=== PATIENT | female | born 1965 | race Caucasian/White ===

== ENCOUNTER 2016-05-04 08:16 | Outpatient (CLI) | payer OTHER | END 2016-05-04 08:17 | disposition home or self-care (01) | DX: Z12.31 Encounter for screening mammogram for malignant neoplasm of breast (principal) ==

== ENCOUNTER 2016-11-08 11:43 | Outpatient (CLI) | payer OTHER ==
[2016-11-08 19:22] LABS: BASOPHILS # (AUTO) 0.1 10^3/uL (0.0-0.1); BASOPHILS % (AUTO) 0.5 %; EOSINOPHILS # (AUTO) 0.2 10^3/uL (0.0-0.7); EOSINOPHILS % (AUTO) 1.3 %; HCT - HEMATOCRIT 45.3 % (37.0-47.0); HGB - HEMOGLOBIN 14.8 g/dL (12.0-16.0); LYMPHOCYTES # (AUTO) 5.2 10^3/uL (1.5-3.5); LYMPHOCYTES % (AUTO) 41.9 %; MEAN CORPUSCULAR HEMOGLOBIN 30.1 pg (27.0-31.0); MEAN CORPUSCULAR HGB CONC 32.7 g/dL (32.0-36.0); MEAN CORPUSCULAR VOLUME 92.1 fL (81.0-99.0); MEAN PLATELET VOLUME 7.5 fL (7.9-10.8); MONOCYTES # (AUTO) 1.4 10^3/uL (0.0-1.0); NEUTROPHILS # (AUTO) 5.6 10^3/uL (1.5-6.6); NEUTROPHILS % (AUTO) 45.3 %; NUCLEATED RED BLOOD CELLS AUTO 0.1 /100WBC; RED BLOOD COUNT 4.92 10^6/uL (4.20-5.40); RED CELL DISTRIBUTION WIDTH 15.2 % (12.0-15.0); UNCORRECTED WHITE BLOOD COUNT 12.5 x10^3/uL; WHITE BLOOD COUNT 12.5 x10^3/uL (4.8-10.8)
[2016-11-08 19:43] LABS: PLATELET ESTIMATE, MANUAL NORMAL (130-450,000) (NORMAL); PLATELET MORPHOLOGY NORMAL APPEARANCE (NORMAL)
== END 2016-11-08 11:44 | disposition home or self-care (01) ==
LOC: LAB.WCP 11:43
PROVIDERS: ATTEND Family Medicine
DX: K62.5 Hemorrhage of anus and rectum (principal)
CPT/HCPCS: 36415; 85025

== ENCOUNTER 2016-12-10 06:59 | Day surgery (SDC) | payer OTHER ==
[2016-12-10] MEDS ORDERED: LACTATED RINGERS 1,000 ML IV ONE (07:04)
[2016-12-10 07:27] LABS: HCG UR QUAL NEGATIVE
[2016-12-10 09:39] VITALS: BP 133/77
== END 2016-12-10 07:00 | disposition home or self-care (01) ==
LOC: SDS 06:59
PROVIDERS: ATTEND Surgery
PROC: 0DJD8ZZ Inspection of Lower Intestinal Tract, Via Natural or Artificial Opening Endoscopic (ICD-10-PCS; principal; 2016-12-10 08:15)
DX: K62.5 Hemorrhage of anus and rectum (principal); K64.8 Other hemorrhoids; I10 Essential (primary) hypertension; Z87.891 Personal history of nicotine dependence
CPT/HCPCS: 45378; 81025; J7120

== ENCOUNTER 2017-04-23 08:00 | Outpatient (CLI) | payer OTHER ==
[2017-04-23 12:46] LABS: BASOPHILS % (AUTO) 0.6 %; EOSINOPHILS # (AUTO) 0.2 10^3/uL (0.0-0.7); HGB - HEMOGLOBIN 14.6 g/dL (12.0-16.0); LYMPHOCYTES # (AUTO) 2.5 10^3/uL (1.5-3.5); LYMPHOCYTES % (AUTO) 31.7 %; MEAN CORPUSCULAR HEMOGLOBIN 30.1 pg (27.0-31.0); MEAN CORPUSCULAR VOLUME 88.5 fL (81.0-99.0); MEAN PLATELET VOLUME 7.7 fL (7.9-10.8); MONOCYTES # (AUTO) 0.7 10^3/uL (0.0-1.0); MONOCYTES % (AUTO) 8.7 %; NEUTROPHILS # (AUTO) 4.4 10^3/uL (1.5-6.6); PLT - PLATELET COUNT 247 10^3/uL (130-450); RED BLOOD COUNT 4.85 10^6/uL (4.20-5.40); RED CELL DISTRIBUTION WIDTH 14.1 % (12.0-15.0); WHITE BLOOD COUNT 7.9 x10^3/uL (4.8-10.8)
[2017-04-23 13:14] LABS: ALBUMIN 4.4 g/dL (3.2-5.5); ALBUMIN/GLOBULIN RATIO 1.4 (1.0-2.2); ALKALINE PHOSPHATASE 53 IU/L (42-121); ALT ALANINE AMINOTRANSFERASE 51 IU/L (10-60); AST ASPARTATE AMINOTRANSFERASE 37 IU/L (10-42); BILIRUBIN,TOTAL 0.3 mg/dL (0.2-1.0); BUN - BLOOD UREA NITROGEN 16 mg/dL (6-20); CALCIUM 9.4 mg/dL (8.5-10.3); CARBON DIOXIDE - CO2 28 mmol/L (21-32); CHLORIDE 98 mmol/L (101-111); CHOL/HDL RATIO 4.1 (<4.4); CHOLESTEROL 152 mg/dL; CREATININE 0.7 mg/dL (0.4-1.0); GFR - MDRD 89 (>89); GLUCOSE 109 mg/dL (70-100); HDL CHOLESTEROL 37 mg/dL; LDL CHOLESTEROL,CALCULATED 82 mg/dL; LDL/HDL RATIO 2.2 (<4.4); SODIUM 133 mmol/L (135-145); TOTAL PROTEIN 7.5 g/dL (6.7-8.2); VLDL CHOLESTEROL 33 mg/dL
== END 2017-04-23 08:01 | disposition home or self-care (01) ==
LOC: LAB.WCP 08:00
PROVIDERS: ATTEND Physician Assistant Medical
DX: Z00.00 Encounter for general adult medical examination without abnormal findings (principal); I10 Essential (primary) hypertension; E04.1 Nontoxic single thyroid nodule
CPT/HCPCS: 36415; 80053; 80061; 84443; 85025

== ENCOUNTER 2017-08-02 13:37 | Outpatient (CLI) | payer OTHER ==
--- NOTE | 2017-08-05 13:57 | Mammography Report ---
DIGITAL SCREENING MAMMOGRAM: 08/02/2017 CLINICAL INDICATION: A 52-year-old for screening. COMPARISON: 04/2016, 10/2014, 04/2013, 01/2012, 01/2011, 01/2010. TECHNIQUE: Routine CC and MLO projections were obtained of the breasts. FINDINGS: Scattered fibroglandular tissue is present within the breasts. There are no dominant masses, suspicious microcalcifications, or secondary signs of malignancy. In comparison to the previous studies, there are no significant changes. IMPRESSION: NO MAMMOGRAPHIC EVIDENCE OF MALIGNANCY. NO SIGNIFICANT INTERVAL CHANGES. RECOMMENDATION: Screening mammography is recommended annually. BIRADS CATEGORY 1 - NEGATIVE. STANDARD QUALIFYING STATEMENTS: 1. This examination was reviewed with the aid of Computed-Aided Detection (CAD). 2. A negative or benign imaging report should not delay biopsy if clinically suspicious findings are present. Consider surgical consultation if warranted. More than 5% of cancers are not identified by imaging. 3. Dense breasts may obscure an underlying neoplasm. TD: 08/05/2017 13:56
== END 2017-08-02 13:38 | disposition home or self-care (01) ==
LOC: DI.N 13:37
PROVIDERS: ATTEND Family Medicine
DX: Z12.31 Encounter for screening mammogram for malignant neoplasm of breast (principal)
CPT/HCPCS: 77067

== ENCOUNTER 2018-09-19 08:05 | Outpatient (CLI) | payer BC ==
--- NOTE | 2018-09-19 09:24 | Mammography Report ---
Reason: SCREENING MAMMO Procedure Date: 09/19/2018 Accession Number: [id number] / [id number] Procedure: [facility] - Screening Mammo w/Roger CPT Code: FULL RESULT: EXAM: Screening Mammo w/Roger DATE: 09/19/2018 8:43 AM CLINICAL HISTORY: Screening encounter. History of early menses. TECHNIQUE: (B) - Bilateral CC and MLO views were obtained. COMPARISON: 08/02/2017 through 02/12/2012. PARENCHYMAL PATTERN: (A) - The breast(s) demonstrate(s) scattered fibroglandular densities. FINDINGS: Redemonstration of a nodular breast parenchymal pattern without suspicious interval change detected. There are no suspicious masses, calcifications, or areas of distortion. IMPRESSION: Benign findings. BI-RADS category 2. RECOMMENDATION: (ANNUAL) - Recommend routine annual screening mammography. BI-RADS CATEGORY: (2) - Benign Findings. STANDARD QUALIFYING STATEMENTS: 1. This examination was not reviewed with the aid of Computer-Aided Detection (CAD). 2. A negative or benign imaging report should not preclude biopsy if clinically suspicious findings are present. 3. Dense breasts may obscure an underlying neoplasm. 4. This examination was reviewed with the aid of 3D breast imaging (tomosynthesis).
== END 2018-09-19 08:06 | disposition home or self-care (01) ==
LOC: DI 08:05
DX: Z12.31 Encounter for screening mammogram for malignant neoplasm of breast (principal)
CPT/HCPCS: 77063; 77067

== ENCOUNTER 2019-08-11 12:17 | Outpatient (CLI) | payer BC ==
--- NOTE | 2019-08-11 18:55 | XRAY Report ---
Reason: RIGHT HIP PAIN Procedure Date: 08/11/2019 Accession Number: [id number] / [id number] Procedure: WCP - Hip 1 View RT CPT Code: Final Report FULL RESULT: EXAM: RIGHT HIP RADIOGRAPHY EXAM DATE: 08/11/2019 12:17 PM. CLINICAL HISTORY: Chronic RIGHT HIP PAIN. COMPARISON: None. TECHNIQUE: 2 views. FINDINGS: Bones: Normal. No fractures or bone lesion. Joints: No dislocation. The hip joint space is preserved. Mild multilevel lower lumbar degenerative disk disease Soft Tissues: Intrauterine device is present. No soft tissue swelling. IMPRESSION: 1. Right hip unremarkable. 2. Mild multilevel lower lumbar degenerative disk disease. RADIA
== END 2019-08-11 23:59 | disposition home or self-care (01) ==
LOC: DI.WCP 12:17
PROVIDERS: ATTEND Family Medicine
DX: M51.36 Other intervertebral disc degeneration, lumbar region (principal); M25.551 Pain in right hip

== ENCOUNTER 2019-12-14 07:03 | Outpatient (CLI) | payer BC ==
[2019-12-14 12:10] LABS: ALBUMIN 4.1 g/dL (3.2-5.5); ALBUMIN/GLOBULIN RATIO 1.6 (1.0-2.2); ALKALINE PHOSPHATASE 60 IU/L (42-121); ALT ALANINE AMINOTRANSFERASE 18 IU/L (10-60); AST ASPARTATE AMINOTRANSFERASE 19 IU/L (10-42); BASOPHILS # (AUTO) 0.1 10^3/uL (0.0-0.1); BASOPHILS % (AUTO) 0.6 %; BILIRUBIN,TOTAL 0.5 mg/dL (0.2-1.0); BUN - BLOOD UREA NITROGEN 19 mg/dL (6-20); CALCIUM 9.1 mg/dL (8.5-10.3); CARBON DIOXIDE - CO2 27 mmol/L (21-32); CHLORIDE 104 mmol/L (101-111); CHOL/HDL RATIO 3.3 (<4.4); CHOLESTEROL 142 mg/dL; CREATININE 0.6 mg/dL (0.4-1.0); EOSINOPHILS # (AUTO) 0.1 10^3/uL (0.0-0.7); EOSINOPHILS % (AUTO) 1.6 %; GLUCOSE 98 mg/dL (70-100); HDL CHOLESTEROL 43 mg/dL; HGB - HEMOGLOBIN 14.1 g/dL (12.0-16.0); LDL CHOLESTEROL,CALCULATED 78 mg/dL; LDL/HDL RATIO 1.8 (<4.4); LYMPHOCYTES # (AUTO) 2.5 10^3/uL (1.5-3.5); LYMPHOCYTES % (AUTO) 31.8 %; MEAN CORPUSCULAR HEMOGLOBIN 31.8 pg (27.0-31.0); MEAN CORPUSCULAR HGB CONC 33.3 g/dL (32.0-36.0); MEAN CORPUSCULAR VOLUME 95.7 fL (81.0-99.0); MEAN PLATELET VOLUME 9.8 fL (7.9-10.8); MONOCYTES # (AUTO) 0.7 10^3/uL (0.0-1.0); MONOCYTES % (AUTO) 9.1 %; NEUTROPHILS # (AUTO) 4.5 10^3/uL (1.5-6.6); NEUTROPHILS % (AUTO) 56.5 %; PLT - PLATELET COUNT 242 10^3/uL (130-450); RED BLOOD COUNT 4.43 10^6/uL (4.20-5.40); RED CELL DISTRIBUTION WIDTH 13.6 % (12.0-15.0); SODIUM 138 mmol/L (135-145); TOTAL PROTEIN 6.7 g/dL (6.7-8.2); VLDL CHOLESTEROL 21 mg/dL
== END 2019-12-14 23:59 | disposition home or self-care (01) ==
LOC: LAB.WCP 07:03
PROVIDERS: ATTEND Family Medicine
DX: I10 Essential (primary) hypertension (principal)
CPT/HCPCS: 36415; 80053; 80061; 83721; 84443; 85025

== ENCOUNTER 2020-01-13 16:23 | Outpatient (CLI) | payer BC ==
[2020-01-13 18:58] LABS: URIC ACID 6.9 mg/dL (2.6-7.2)
[2020-01-13 19:00] LABS: CRP - C-REACTIVE PROTEIN < 1.0 mg/dL (0-1.0)
== END 2020-01-13 23:59 | disposition home or self-care (01) ==
LOC: LAB.WCP 16:23
PROVIDERS: ATTEND Nurse Practitioner
DX: M79.671 Pain in right foot (principal)
CPT/HCPCS: 36415; 84550; 85651; 86140

== ENCOUNTER 2020-07-05 16:47 | Outpatient (CLI) | payer BC ==
--- NOTE | 2020-07-06 08:20 | XRAY Report ---
PROCEDURE: Ankle 3 View RT INDICATIONS: SPRAIN OF UNSPECIFIED LIGAMENT OF R ANKLE TECHNIQUE: 3 views of the ankle were acquired. COMPARISON: None. FINDINGS: No fracture. Scattered subchondral sclerosis and spurring. Mild tibiotalar joint degeneration. Promi nent plantar and posterior calcaneal spurs. Soft tissues: No tibiotalar joint effusion. Achilles tendon appears normal. IMPRESSION: No definite fracture however follow-up radiographs in 10 days could be performed if the patient's symptoms do not improve to exclude occult fracture/assess for healing sclerosis. Reviewed by: Bobo Khan MD on 07/06/2020 8:19 AM PDT Approved by: Bobo Khan MD on 07/06/2020 8:19 AM PDT Station ID: [id number]
== END 2020-07-05 23:59 | disposition home or self-care (01) ==
LOC: DI.N 16:47
PROVIDERS: ATTEND Nurse Practitioner
DX: S93.401A Sprain of unspecified ligament of right ankle, initial encounter (principal)

== ENCOUNTER 2020-07-21 10:01 | Outpatient (CLI) | payer BC ==
--- NOTE | 2020-07-22 07:48 | Mammography Report ---
BILATERAL DIGITAL SCREENING MAMMOGRAM 3D/2D: 07/21/2020 CLINICAL: Routine screening. Comparison is made to exams dated: 09/19/2018 mammogram, 08/02/2017 mammogram, 05/04/2016 mammogram - [facility], and 11/02/2014 mammogram - [facility]. The tissue of both breasts is heterogeneously dense. This may lower the sensitivity of mammography. There is a new 0.8 cm asymmetry with an indistinct margin and fine calcifications in the left breast middle depth central to the nipple seen on the craniocaudal view only 13.4 cm from the skin. There also is a 0.4 cm x 0.6 cm mass in the left breast at 12 o'clock middle depth 9 cm from the skin . No other significant masses, calcifications, or other findings are seen in either breast. IMPRESSION: INCOMPLETE: NEEDS ADDITIONAL IMAGING EVALUATION The new 0.8 cm asymmetry in the left breast middle depth central to the nipple seen on the craniocaud al view only is indeterminate. Additional views with possible ultrasound are recommended. The 0.4 cm x 0.6 cm mass in the left breast at 12 o'clock middle depth is indeterminate. Additional views with possible ultrasound are recommended. This exam was interpreted at Station ID: [id number]. NOTE: For mammograms, a report in lay terms will be sent to the patient. Approximately 15% of breast malignancies will not be visualized mammographically. In the management of a palpable breast mass, a negative mammogram must not discourage biopsy of a clinically suspicious lesion. Electronically Signed By: Jose Guadalupe Vail acr/:07/21/2020 10:44:25 ACR BI-RADS Category 0: Incomplete 3340F PARENCHYMAL PATTERN: (D) - The breast(s) demonstrate(s) heterogeneously dense fibroglandular parenchy ma. BI-RADS CATEGORY: (0) - 0 Mammo and [place] [id number] Immediate follow-up LATERALITY: (L)
== END 2020-07-21 10:02 | disposition home or self-care (01) ==
LOC: DI 10:01
DX: Z12.31 Encounter for screening mammogram for malignant neoplasm of breast (principal); N63.23 Unspecified lump in the left breast, lower outer quadrant

== ENCOUNTER 2021-03-15 08:00 | Outpatient (CLI) | payer BC ==
[2021-03-15 12:09] LABS: BASOPHILS # (AUTO) 0.1 10^3/uL (0.0-0.1); BASOPHILS % (AUTO) 0.9 %; EOSINOPHILS # (AUTO) 0.2 10^3/uL (0.0-0.7); EOSINOPHILS % (AUTO) 1.6 %; HCT - HEMATOCRIT 44.6 % (37.0-47.0); HGB - HEMOGLOBIN 14.4 g/dL (12.0-16.0); LYMPHOCYTES # (AUTO) 3.8 10^3/uL (1.5-3.5); LYMPHOCYTES % (AUTO) 40.8 %; MEAN CORPUSCULAR HEMOGLOBIN 28.9 pg (27.0-31.0); MEAN CORPUSCULAR HGB CONC 32.3 g/dL (32.0-36.0); MEAN CORPUSCULAR VOLUME 89.4 fL (81.0-99.0); MEAN PLATELET VOLUME 9.7 fL (7.9-10.8); MONOCYTES # (AUTO) 0.9 10^3/uL (0.0-1.0); MONOCYTES % (AUTO) 9.8 %; NEUTROPHILS # (AUTO) 4.3 10^3/uL (1.5-6.6); NEUTROPHILS % (AUTO) 46.7 %; PLT - PLATELET COUNT 280 10^3/uL (130-450); RED BLOOD COUNT 4.99 10^6/uL (4.20-5.40); RED CELL DISTRIBUTION WIDTH 14.7 % (12.0-15.0); WHITE BLOOD COUNT 9.3 x10^3/uL (4.8-10.8)
[2021-03-15 13:05] LABS: ALBUMIN 4.1 g/dL (3.2-5.5); ALBUMIN/GLOBULIN RATIO 1.3 (1.0-2.2); ALKALINE PHOSPHATASE 57 IU/L (42-121); ALT ALANINE AMINOTRANSFERASE 22 IU/L (10-60); AST ASPARTATE AMINOTRANSFERASE 20 IU/L (10-42); BILIRUBIN,TOTAL 0.5 mg/dL (0.2-1.0); BUN - BLOOD UREA NITROGEN 15 mg/dL (6-20); CALCIUM 9.2 mg/dL (8.5-10.3); CARBON DIOXIDE - CO2 29 mmol/L (21-32); CHLORIDE 101 mmol/L (101-111); CHOL/HDL RATIO 4.5 (<4.4); CHOLESTEROL 158 mg/dL; CREATININE 0.7 mg/dL (0.4-1.0); GFR - MDRD 87 (>89); GLUCOSE 96 mg/dL (70-100); HDL CHOLESTEROL 35 mg/dL; LDL CHOLESTEROL,CALCULATED 98 mg/dL; LDL/HDL RATIO 2.8 (<4.4); SODIUM 138 mmol/L (135-145); TOTAL PROTEIN 7.3 g/dL (6.7-8.2); TRIGLYCERIDES 126 mg/dL; VLDL CHOLESTEROL 25 mg/dL
[2021-03-15 13:11] LABS: THYROID STIMULATING HORMONE 0.49 uIU/mL (0.34-5.60)
== END 2021-03-15 23:59 ==
LOC: LAB.WCP 08:00
PROVIDERS: ATTEND Family Medicine
DX: Z00.00 Encounter for general adult medical examination without abnormal findings (principal); I10 Essential (primary) hypertension
CPT/HCPCS: 36415; 80053; 80061; 83721; 84443; 85025

== ENCOUNTER 2021-03-17 15:45 | Outpatient (CLI) | payer BC ==
--- NOTE | 2021-03-20 12:17 | Ultrasound Report ---
PROCEDURE: Head or Neck Soft Tissue INDICATIONS: THYROID NODULE TECHNIQUE: Real-time scanning was performed of the thyroid gland, with image documentation. COMPARISON: None. Previous study obtained in the hospital no longer available. FINDINGS: Right: Thyroid lobe measures 5.7 x 1.8 x 2.3 cm, and is homogeneous in echotexture. Left: Thyroid lobe measures 5.2 x 1.8 x 2.2 cm, and is homogenous in echotexture. Isthmus: 6 mm thick. Nodule number: One Location: Right superior-lateral Size: 0.8 x 0.6 x 0.5 cm. Composition: Solid Echogenicity: Hypoechoic Shape: wider than tall. Margins: Smooth Echogenic foci: None Total points: 4 ACR TI-RADS category: Moderately suspicious Nodule number: Two Location: Right inferior Size: 3.6 x 1.8 x 2.1 cm. Composition: Solid Echogenicity: Isoechoic Shape: wider than tall. Margins: Smooth Echogenic foci: None Total points: 3 ACR TI-RADS category: Mildly suspicious Nodule number: Three Location: Isthmus Size: 1.4 x 0.9 x 1.9 cm. Composition: Spongiform Echogenicity: Hypoechoic Shape: wider than tall. Margins: Smooth Echogenic foci: None Total points: 2 ACR TI-RADS category: Not suspicious Nodule number: Four Location: Left middle Size: 1.1 x 1.2 x 1.0 cm. Composition: Predominantly solid Echogenicity: Hypoechoic Shape: wider than tall. Margins: Ill-defined with halo Echogenic foci: Macrocalcification. Total points: 7 ACR TI-RADS category: Highly suspicious Nodule number: Five Location: Left inferior Size: 2.2 x 1.1 x 1.9 cm. Composition: Predominantly solid Echogenicity: Hypoechoic. Shape: wider than tall. Margins: Ill-defined. Echogenic foci: Macrocalcifications Total points: 7 ACR TI-RADS category: Highly suspicious IMPRESSION: 1. Multiple thyroid nodules. 2. Nodule 4 and nodule 5 in the left thyroid have highly suspicious imaging characteristics and measu re greater than 1 cm in maximum diameter. Ultrasound-guided fine-needle aspiration of the nodules is recommended. 3. Nodule 1 and nodule 2 in the right lobe of the are moderately and mildly suspicious, respectively. Recommend serial follow-up thyroid ultrasound based on criteria outlined below. ACR TI-RADS definitions and recommendations: TI-RADS 1 (benign): 0 points. FNA not needed. TI-RADS 2 (not suspicious): 2 points. FNA not needed. TI-RADS 3 (mildly suspicious): 3 points. "FNA if 2.5 cm or larger, follow up if 1.5 cm or larger (at 1, 3, and 5 years). TI-RADS 4 (moderately suspicious): 4-6 points. "FNA if 1.5 cm or larger, follow up if 1 cm or larger (at 1, 2, 3, and 5 years). TI-RADS 5 (highly suspicious): 7 points or more. "FNA if 1 cm or larger, follow up if 0.5 cm or larger (every year for 5 years). Reviewed by: Katelyn Quezada MD, PhD on 03/20/2021 12:16 PM PST Approved by: Katelyn Quezada MD, PhD on 03/20/2021 12:16 PM PST Station ID: [id number]
== END 2021-03-17 15:46 | disposition home or self-care (01) ==
LOC: DI 15:45
PROVIDERS: ATTEND Family Medicine
DX: E04.2 Nontoxic multinodular goiter (principal)

== ENCOUNTER 2021-04-21 09:36 | Outpatient (CLI) | payer BC ==
[2021-04-21] MEDS ORDERED: lidocaine 1% 20 ML MDV ONE (09:52)
[2021-04-21] MEDS ORDERED: lidocaine 1% 20 ML MDV SUBQ ONE (11:24)
--- NOTE | 2021-04-21 12:12 | Ultrasound Report ---
PROCEDURE: FNA Bx w/US Gnd 1st les INDICATIONS: MULTIPLE THYROID NODULES TECHNIQUE: The indications, alternatives, benefits, risks, and complications of the procedure were explained to the patient. Written informed consent was obtained and placed in the chart. The area of interest wa s examined sonographically and a site was chosen for ultrasound guided percutaneous sampling. The sk in was prepared and draped in the usual fashion, and anesthetized with 1% lidocaine infiltrated from the skin down to the lesion. Multiple passes were then performed, with contents emptied into an appr [facility] pathology specimen container. A bandage was applied to the area of access at completion of t he study. COMPARISON: March 17, 2020. FINDINGS: Location(s) of lesion(s) sampled: Left inferior [place]: 25 gauge hypodermic needles. Number of passes: 6 Medications: 1% lidocaine for local anaesthesia. Complications: None. The left mid posterior nodule was technically difficult due to the depth and not aspirated during the procedure. IMPRESSION: Successful ultrasound-guided left inferior thyroid nodule fine needle aspiration, with cytology resul ts pending. Reviewed by: Dinesh Calderon MD on 04/21/2021 12:10 PM PST Approved by: Dinesh Calderon MD on 04/21/2021 12:10 PM PST Station ID: [id number]
== END 2021-04-21 09:37 | disposition home or self-care (01) ==
LOC: DI 09:36
PROVIDERS: ATTEND Otolaryngology
DX: E04.2 Nontoxic multinodular goiter (principal)
CPT/HCPCS: 10005

== ENCOUNTER 2022-04-13 16:09 | Outpatient (CLI) | payer BC ==
--- NOTE | 2022-04-14 14:25 | Ultrasound Report ---
PROCEDURE: Head or Neck Soft Tissue INDICATIONS: THYROID NODULE TECHNIQUE: Real-time scanning was performed of the thyroid gland, with image documentation. COMPARISON: Thyroid ultrasound 03/17/2021, thyroid FNA images 04/21/2021 FINDINGS: Right: Thyroid lobe measures 5.6 x 2.5 x 2.3 cm, and is heterogeneous in echotexture. Left: Thyroid lobe measures 4.8 x 2.1 x 1.8 cm, and is heterogeneous in echotexture. Isthmus: 6 mm thick. Nodule number: One Location: Right lobe superior Size: 0.9 x 0.6 x 0.6 cm. Previously 0.8 x 0.6 x 0.5 cm no significant change Composition: Solid Echogenicity: Hypoechoic Shape: wider than tall. Margins: Smooth Echogenic foci: None Total points: 4 ACR TI-RADS category: 4 Nodule number: Two Location: Right lobe inferior Size: 2.9 x 1.8 x 2.2 cm. Previously 3.6 x 1.8 x 2.1 cm no significant change Composition: Predominantly solid Echogenicity: Isoechoic Shape: wider than tall. Margins: Smooth Echogenic foci: None Total points: 3 ACR TI-RADS category: 3 Nodule number: Three Location: Isthmus Size: 1.5 x 0.8 x 1.9 cm. Previously 1.4 x 0.9 x 1.9 cm no significant change Composition: Cystic and solid Echogenicity: Hypoechoic Shape: wider than tall. Margins: Smooth Echogenic foci: None Total points: 3 ACR TI-RADS category: 3 Nodule number: Four Location: Left lobe mid Size: 1.2 x 1.2 x 1.2 cm. Previously 1.1 x 1.2 x 1.0 cm no significant change Composition: Predominantly solid Echogenicity: Hypoechoic Shape: wider than tall. Margins: Lobulated Echogenic foci: Macrocalcification Total points: 7 ACR TI-RADS category: 5 Nodule number: Five Location: Left lobe inferior Size: 2.3 x 1.2 x 1.8 cm. Previously 2.2 x 1.1 x 1.9 cm no significant change Composition: Solid Echogenicity: Hypoechoic Shape: wider than tall. Margins: Smooth Echogenic foci: Macrocalcification Total points: 5 ACR TI-RADS category: 4 IMPRESSION: 1. No significant change in previously demonstrated thyroid nodules. 2. Nodules #2, 4, and 5 meet TI-RADS criteria for FNA recommendation. Correlation with prior FNA resu lts is recommended. ACR TI-RADS definitions and recommendations: TI-RADS 1 (benign): 0 points. FNA not needed. TI-RADS 2 (not suspicious): 2 points. FNA not needed. TI-RADS 3 (mildly suspicious): 3 points. "FNA if 2.5 cm or larger, follow up if 1.5 cm or larger (at 1, 3, and 5 years). TI-RADS 4 (moderately suspicious): 4-6 points. "FNA if 1.5 cm or larger, follow up if 1 cm or larger (at 1, 2, 3, and 5 years). TI-RADS 5 (highly suspicious): 7 points or more. "FNA if 1 cm or larger, follow up if 0.5 cm or larger (every year for 5 years). Reviewed by: Sandip Jimenez MD on 04/14/2022 2:23 PM PST Approved by: Sandip Jimenez MD on 04/14/2022 2:23 PM PST Station ID: [id number]
== END 2022-04-13 16:10 | disposition home or self-care (01) ==
LOC: DI 16:09
PROVIDERS: ATTEND Physician Assistant
DX: E04.2 Nontoxic multinodular goiter (principal)

== ENCOUNTER 2022-04-22 07:18 | Outpatient (CLI) | payer BC ==
[2022-04-22 08:06] LABS: ALBUMIN 3.9 g/dL (3.2-5.5); ALBUMIN/GLOBULIN RATIO 1.3 (1.0-2.2); ALKALINE PHOSPHATASE 61 IU/L (42-121); ALT ALANINE AMINOTRANSFERASE 26 IU/L (10-60); AST ASPARTATE AMINOTRANSFERASE 21 IU/L (10-42); BUN - BLOOD UREA NITROGEN 11 mg/dL (6-20); CALCIUM 9.1 mg/dL (8.5-10.3); CARBON DIOXIDE - CO2 28 mmol/L (21-32); CHLORIDE 103 mmol/L (101-111); CHOL/HDL RATIO 4.7 (<4.4); CHOLESTEROL 155 mg/dL; CREATININE 0.7 mg/dL (0.4-1.0); GFR - MDRD 87 (>89); GLUCOSE 111 mg/dL (70-100); HDL CHOLESTEROL 33 mg/dL; LDL CHOLESTEROL,CALCULATED 100 mg/dL; SODIUM 139 mmol/L (135-145); TRIGLYCERIDES 110 mg/dL; VLDL CHOLESTEROL 22 mg/dL
[2022-04-22 08:16] LABS: BASOPHILS % (AUTO) 0.5 %; EOSINOPHILS # (AUTO) 0.1 10^3/uL (0.0-0.7); EOSINOPHILS % (AUTO) 0.8 %; HCT - HEMATOCRIT 46.5 % (37.0-47.0); HGB - HEMOGLOBIN 15.4 g/dL (12.0-16.0); LYMPHOCYTES # (AUTO) 3.1 10^3/uL (1.5-3.5); LYMPHOCYTES % (AUTO) 37.8 %; MEAN CORPUSCULAR HGB CONC 33.1 g/dL (32.0-36.0); MEAN CORPUSCULAR VOLUME 90.6 fL (81.0-99.0); MEAN PLATELET VOLUME 9.2 fL (7.9-10.8); MONOCYTES # (AUTO) 0.6 10^3/uL (0.0-1.0); MONOCYTES % (AUTO) 7.8 %; NEUTROPHILS # (AUTO) 4.4 10^3/uL (1.5-6.6); NEUTROPHILS % (AUTO) 52.9 %; PLT - PLATELET COUNT 226 10^3/uL (130-450); RED BLOOD COUNT 5.13 10^6/uL (4.20-5.40); RED CELL DISTRIBUTION WIDTH 13.7 % (12.0-15.0); WHITE BLOOD COUNT 8.3 x10^3/uL (4.8-10.8)
[2022-04-22 08:19] LABS: THYROID STIMULATING HORMONE 0.37 uIU/mL (0.34-5.60)
== END 2022-04-22 07:19 | disposition home or self-care (01) ==
LOC: LAB 07:18
PROVIDERS: ATTEND Physician Assistant
DX: I10 Essential (primary) hypertension (principal); E78.6 Lipoprotein deficiency; E04.1 Nontoxic single thyroid nodule
CPT/HCPCS: 36415; 80053; 80061; 83721; 84443; 85025

== ENCOUNTER 2022-05-07 14:17 | Outpatient (CLI) | payer BC ==
[2022-05-07 15:19] VITALS: BP 118/62
--- NOTE | 2022-05-07 15:19 | SLEEP CARE CONSULTATION ---
Information from patient questionnaire entered by William Pepper. I have reviewed and concur with the information entered by William Pepper. This document represents the service I personally performed and the decisions made by me, Jaylyn Walker MD, [facility]. History of Present Illness Service Date and Time: 05/07/2022 1417 Reason for Visit: New patient Chief Complaint: reports: Snoring Date of Onset: YRS Usual bedtime: 9-930 Time it takes to fall asleep: 5MIN Snores at night: Yes Observed to quit breathing while asleep: Yes Sleeps alone due to snoring: No Number of times waking at night: 2-3 Reasons for waking at night: reports: Other (UNKNOWN REASONS) Toss, Turn, or Twitch while sleeping: Yes Recalls having dreams: No Usually gets out of bed at: 430AM Feels refreshed in the morning: No Morning headache: No Sleepy or fatigued during the day: Yes Ever fallen asleep while driving: No Dreams during day naps: No Prior sleep studies: No Additional HPI information: I have the pleasure of seeing Ms. Leigh today regarding the possibility of her having obstructive sleep apnea. As you know, she is a 56-year-old lady who complains of loud snore. The patient tells me that she normally goes to bed around 9 9:30 pm, and it takes her approximately 5 minutes to fall asleep. She has been told that she snores loudly and irregularly at night. She has also been observed to stop breathing in her sleep. Her can still sleep in the same bed. She can recall waking up on the average of 2 - 3 times during the night. Most of the time she wakes up because of unknown reason. She has never awakened because of her own snoring, choking, or having to gasp for air. There is a lot of tossing and turning in her sleep. No somniloquy (sleep talking) or somnambulism (sleep walking). Generally, there is no recollection of dreams. In the morning she usually gets up out of the bed around 4 4:30 a.m. not feeling refreshed nor rested. She usually does not have a morning headache. During the day she complains of feeling sleepy and fatigued. Her score on [place] Sleepiness Scale is 11 out of 24. She never has fallen asleep while driving nor has had any accident due to sleepiness. She usually does not take naps during the day. Upon falling asleep during the day she denies having vivid dreams. She has never had sleep paralysis, experienced cataplexy but reports symptoms of restless leg syndrome. She denies having impaired concentration during the day. 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 Patient is and lives in [place]. Have you smoked in the past 12 months: Yes Cigarettes per day (20/pack): 4 Alcohol use: Yes Alcohol amount and frequency: RARELY Caffeine use: Yes Caffeine amount and frequency: DAILY Family History Family history of sleep disordered breathing: Yes Family Hx Sleep Apnea: Mother: Snoring, Sleep apnea - Treated, Father: Snoring, Sleep apnea - Treated, Sibling: Snoring, Sleep apnea - Treated Allergies and Home Medications Known drug allergies: Yes (PCN) Drug allergies reviewed: Yes Home medication list reviewed: Yes Allergy and home medication list: Allergies acetaminophen [From Percocet] Allergy (Verified 12/07/16 13:53) Itching oxycodone HCl * [From Percocet] Allergy (Verified 12/07/16 13:53) Itching Penicillins Allergy (Verified 12/21/15 21:50) Respiratory Review of Systems Weight gain over past 5 years: 75-100 Cardiovascular: reports: high blood pressure Respiratory: denies: shortness of breath, wheeze, sputum production, chronic cough, other Gastrointestinal: denies: heartburn, difficulty swallowing, nausea, vomitting, diarrhea, abdominal pain, other Urinary: denies: incontinence, frequency, urgency, impotence, other Neurological: denies: headaches, seizure, head trauma, disorientation, speech dysfunction, gait or balance problems, fainting or unconsciousness, other Psychiatric: denies: Attention Deficit Hyperactivity, anxiety, depression, mood disorder, claustrophobia, other Ear/Nose/Throat: reports: nasal congestion, nose bleeds, dry mouth/throat, wisdom teeth removed Endocrine: reports: sluggishness Immunologic: reports: sneezing Physical Exam Vital signs obtained and entered by: WILLIAM Posada MA Blood Pressure: 118/62 (LEFT ARM) Cuff size: regular Heart Rate: 72 O2 Saturation: 98 Height: 5 ft 3 in Weight: 244 lb 3.2 oz Body Mass Index: 43.2 BMI Classification: Morbidly Obese Neck circumference: 17.5 Mood/affect: Normal HEENT: No craniofacial malformation Nostrils: patent to airflow Turbinates: normal Septum: midline Mouth and throat: narrow oropharynx Soft palate: long Hard palate: normal Uvula: normal Uvula visualization: 25% Mallampati Class III Tongue: enlarged in size with teeth oreilly on lateral edges Tonsils: absent bilaterally Chin and jaw: normal size and position Neck: normal w/o lymphadenopathy or thyromegaly Heart: regular rate and rhythm Lungs: clear bilaterally Extremities: no edema or clubbing Neurologic: intact Impression and Plan IMPRESSION: 1. Obstructive Sleep Apnea-Hypopnea Syndrome, as evident by history of loud and irregular snoring, observed cessation of breath while asleep, frequent awakenings during the night, unrefreshed sleep, and daytime hypersomnolence. Narrow oropharynx and obesity are common predisposing factors for obstructive sleep apnea-hypopnea syndrome. Untreated obstructive sleep apnea can also cause hypertension. I recommend proceeding to polysomnography to confirm the diagnosis and to assess severity. If she has significant sleep disordered breathing, a manual CPAP titration study will also be performed to find the optimal treatment pressure. I informed the patient of what the sleep studies involve and after some discussion, she agreed to proceed. Plan: 1. Schedule polysomnography and return in 1 to 2 weeks after the study to discuss result and initiate therapy. 2. Avoid long distance driving or when feeling sleepy. 3. Avoid alcohol, sedative and muscle relaxant around bedtime. 4. Attempt to lose weight. Counseling Topics: Weight control Follow up with Sleep Care in: 1-2 months Visit Type: In Office Time Spent with Patient (minutes): 15 Provider Statement: I spent 100% of the Face to Face Visit with the patient with greater than 50% spent counseling the patient and coordination of care.
== END 2022-05-07 14:18 | disposition home or self-care (01) ==
LOC: SC 14:17
PROVIDERS: ATTEND Internal Medicine Pulmonary Disease
DX: G47.10 Hypersomnia, unspecified (principal); R06.83 Snoring; G47.8 Other sleep disorders; R06.81 Apnea, not elsewhere classified; E11.9 Type 2 diabetes mellitus without complications; I10 Essential (primary) hypertension; F17.210 Nicotine dependence, cigarettes, uncomplicated; E66.01 Morbid (severe) obesity due to excess calories; Z68.41 Body mass index [BMI] 40.0-44.9, adult
CPT/HCPCS: 99202; 99212

== ENCOUNTER 2022-06-01 08:21 | Outpatient (CLI) | payer BC | END 2022-06-01 08:22 | disposition home or self-care (01) | LOC: SC 08:21 | PROVIDERS: ATTEND Internal Medicine Pulmonary Disease | DX: G47.33 Obstructive sleep apnea (adult) (pediatric) (principal); R09.02 Hypoxemia | CPT/HCPCS: 95806 ==

== ENCOUNTER 2022-06-25 16:55 | Outpatient (CLI) | payer BC ==
--- NOTE | 2022-06-25 16:27 | SLEEP CARE CONSULTATION ---
Information from patient questionnaire entered by Melania Pepper. I have reviewed and concur with the information entered by Melania Pepper. This document represents the service I personally performed and the decisions made by me, Jaylyn Walker MD, [facility]. History of Present Illness Service Date and Time: 06/25/2022 0940 Initial [place] Sleepiness Scale score: 11 (05/07/22) Current [place] Sleepiness Scale score: 17 (06/25/22) Additional HPI information: Ms. Oconnor returned for follow up of the home sleep apnea test (HSAT) she had on 06/01/22. The test showed that moderate obstructive sleep apnea-hypopnea, with an AHI of 26.4/hr and mayra SaO2 of 84%. During the study, the patient had 0 apneas (0 obstructive, 0 central, 0 mixed) and 115 hypopneas. The longest episode lasted 84.0 seconds. The respiratory events occurred more frequently during supine sleep (supine AHI was 70.5 and non-supine, 12.90). Hypoxemia was mild, with the lowest oxygen saturation of 84 % and 26.2 minutes with SaO2 under 90%. Baseline oxygen saturation was normal (Average oxygen saturation was 92%). The patient was informed of these findings. I explained to her the pathophysiology behind obstructive sleep apnea. We then spent quite a bit of time discussing different treatment options. For mild obstructive sleep apnea, surgery and oral appliance are alternatives to nasal CPAP therapy but in moderate or severe cases, nasal CPAP is the most effective and reliable treatment. After some discussion, she opted to go with the nasal CPAP therapy. I explained to her how CPAP machine works and what to expect when using the machine. She is encouraged to use CPAP every night especially in the first 2 to 3 nights in order to get used to it. She should call me or her CPAP supplier to discuss any mechanical problem that may occur. If she snores while wearing the CPAP or feels like she needs more air from the machine, she should notify me and I will increase the pressure. Sleep Study - Results Type of Sleep Study: Home sleep study (COMPLETED 06-01-22) Prior sleep studies: No Allergies and Home Medications Drug allergies reviewed: Yes Home medication list reviewed: Yes Allergy and home medication list: Allergies acetaminophen [From Percocet] Allergy (Verified 05/07/22 14:34) Itching oxycodone HCl * [From Percocet] Allergy (Verified 05/07/22 14:34) Itching Penicillins Allergy (Verified 05/07/22 14:34) Respiratory Review of Systems Review of systems same as previous: Yes Physical Exam Vital signs obtained and entered by: VIA PHONE MELANIA Posada MA Height: 5 ft 2.5 in (PER PT) Weight: 231 lb (PER PT) Body Mass Index: 41.5 BMI Classification: Morbidly Obese Impression and Plan IMPRESSION: 1. Obstructive Sleep Apnea-Hypopnea Syndrome, moderate, associated with mild hypoxemia. Most likely, this is the cause of the patients symptoms of unrefreshed sleep, and excessive daytime sleepiness. As mentioned above, the patient will be started on autoCPAP set between 5 and 15 cmH2O. Depending on her response and compliance she may be brought back for an overnight CPAP titration study. PLAN: 1. Prescription made for an autoCPAP, heated humidifier, and related supplies through [facility]. 2. Attempt to lose weight. 3. The patient was again cautioned on driving. She should be extra careful when driving until her sleepiness resolves completely on nasal CPAP therapy. 4. Return for follow up after one month of using the CPAP. Prescriptions: Auto CPAP Follow up with Sleep Care in: 1-2 months Visit Type: Telehealth Phone Video Type: Nelia Patient Location: Office Location of Provider: Office Patient agrees and consents to this telehealth visit type: Yes Patient agrees to have their insurance billed: Yes Time Spent with Patient (minutes): 15 Provider Statement: I spent 100% of the Telehealth Phone Call with the patient with greater than 50% spent counseling the patient and coordination of care.
== END 2022-06-25 16:56 | disposition home or self-care (01) ==
LOC: SC 16:55
PROVIDERS: ATTEND Internal Medicine Pulmonary Disease
DX: G47.33 Obstructive sleep apnea (adult) (pediatric) (principal); E66.01 Morbid (severe) obesity due to excess calories; Z68.41 Body mass index [BMI] 40.0-44.9, adult

== ENCOUNTER 2022-07-27 12:48 | Outpatient (CLI) | payer BC | END 2022-07-27 12:49 | disposition home or self-care (01) | LOC: NS 12:48 | PROVIDERS: ATTEND Physician Assistant | DX: E11.9 Type 2 diabetes mellitus without complications (principal); Z71.3 Dietary counseling and surveillance; Z71.89 Other specified counseling; Z79.84 Long term (current) use of oral hypoglycemic drugs | CPT/HCPCS: 97802 ==

== ENCOUNTER 2022-08-31 08:20 | Outpatient (CLI) | payer BC ==
--- NOTE | 2022-08-31 08:43 | Sleep Patient Instructions ---
Sleep Center Visit Summary - Patient Visit Information Reason for Visit: First compliance visit for CPAP therapy - Patient Instructions Additional Instructions: You were here for follow up of CPAP therapy. You will be continued on CPAP therapy with pressure at 4-12 cmH2O. You should follow up with sleep care in 3 months. You may contact us sooner for any questions or concerns. - Clinic Information Contact: [facility] [address] [place] [address] [email or web address] T: [phone]
[2022-08-31 08:50] VITALS: BP 124/72
--- NOTE | 2022-08-31 08:50 | SLEEP CARE CONSULTATION ---
Information from patient questionnaire entered by Melania Pepper. I have reviewed and concur with the information entered by Melania Pepper. This document represents the service I personally performed and the decisions made by , Chelsea Hughes ARNP. History of Present Illness Service Date and Time: 08/31/2022 0820 Previous diagnosis: Moderate, Obstructive Sleep Apnea-Hypopnea Syndrome AHI: 26.4 (in 2022) Reason for follow up: first compliance Equipment type: CPAP (RESMED Airsense 11, s/u 06/2022; NEED SD AND MACHINE) Equipment obtained from: Other ([facility]; got initial supplies) Mask style: Nasal pillows (Antonito II) Backup mask available: No (will keep old mask when replaced) Last cushion change: last week Prior sleep studies: No Type of Sleep Study: Polysomnography (COMPLETED 06-01-22) HPI additional information: CAROL ANN WRIGHT was diagnosed to have moderate, AHI 26.4, obstructive sleep apnea- hypopnea syndrome and returned today for CPAP therapy first compliance follow- up. Sleep Study - Results Type of Sleep Study: Home sleep study (COMPLETED 06-01-22) Prior sleep studies: No CPAP Compliance Data - Data Reviewed with Patient Average duration of nightly device use: 5 hours 59 minutes Compliance rate %: 93 (30/30 days used) Current pressure setting (cmH2O): 4-12 (median 9.0, avg 11.1, max 11.7) Average residual AHI: 2.7 Central apnea: 0.2 Obstructive apnea: 1.8 Subjective Patient concerns: reports: other (slight soreness in nose, improving). denies: aerophagia, mask discomfort, air blowing in eyes, mask leak noise, condensation in mask/hose, nasal congestion, dry mouth, nose, throat, epistaxis Observed to snore while using device: No Current pressure setting perceived as: comfortable On therapy, patient: reports: sleeping better, awakening more refreshed, being more awake and alert during the day, more rested overall. denies: drowsiness while driving Initial [place] Sleepiness Scale score: 11 (05/07/22) Current [place] Sleepiness Scale score: 5 (08/31/22) Allergies and Home Medications Known drug allergies: Yes (as listed) Drug allergies reviewed: Yes Home medication list reviewed: Yes (Metformin) Allergy and home medication list: Allergies acetaminophen [From Percocet] Allergy (Verified 08/30/22 10:28) Itching oxycodone HCl * [From Percocet] Allergy (Verified 08/30/22 10:28) Itching Penicillins Allergy (Verified 08/30/22 10:28) Respiratory Review of Systems Review of systems same as previous: Yes (no changes) Physical Exam Vital signs obtained and entered by: MELANIA Posada MA Blood Pressure: 124/72 (LEFT ARM) Cuff size: regular Heart Rate: 62 O2 Saturation: 98 Height: 5 ft 4 in Weight: 228 lb 9.6 oz Weight change since last visit: 3 lbs loss Body Mass Index: 39.2 BMI Classification: Obese Impression and Plan 1. Obstructive Sleep Apnea-Hypopnea Syndrome, moderate, with good treatment compliance and good apnea control. On CPAP therapy, the patient has better sleep quality and is more rested overall. She gets a little bit of soreness in one nostril sometimes. She is cleaning her cushion daily. She thinks maybe her nose is just a little dry. Nasal dryness can be reduced with increasing the CPAP humidity and the heated hose can be increased if condensation. In addition, she may try a nasal moisturizer (saline gel) that she can obtain at any pharmacy to help with the irritation/dryness as needed. She has good apnea control with current settings and it is comfortable. I will make no adjustments of her pressure today. Goals for apnea control discussed. She voiced understanding. Patient's apnea severity and rationale for treatment to reduce apnea, improve sleep quality and reduce cardiovascular and cerebrovascular events was reviewed. I also reviewed the benefit of consistent device use of CPAP for hypertension and diabetes. 2. Obesity, unspecified. Currently patients BMI is 39.2. She has lost weight. Obesity increases the risk of apnea, CPAP pressure requirements and overall health risks especially cardiovascular and diabetes. Thus patient is advised to continue to try to lose weight. * Continue auto CPAP pressure at 4-12 cmH2O * Notify me if snoring with mask or feeling that the pressure is too much or too little * Attempt to lose weight * Call this office if any problems using CPAP * Return for follow up in 3 months, or sooner if concerns arise Counseling Topics: Spare mask, Weight loss health impact Follow up with Sleep Care in: 3 months Visit Type: In Office Time Spent with Patient (minutes): 20 Provider Statement: I spent 100% of the Face to Face Visit with the patient with greater than 50% spent counseling the patient and coordination of care.
== END 2022-08-31 08:21 | disposition home or self-care (01) ==
LOC: SC 08:20
PROVIDERS: ATTEND Nurse Practitioner Family
DX: G47.33 Obstructive sleep apnea (adult) (pediatric) (principal); E66.9 Obesity, unspecified; Z68.39 Body mass index [BMI] 39.0-39.9, adult
CPT/HCPCS: 99212; 99213

== ENCOUNTER 2022-09-14 09:20 | Outpatient (CLI) | payer BC ==
--- NOTE | 2022-09-14 14:28 | XRAY Report ---
PROCEDURE: Hip w/Pelvis 2-3V RT INDICATIONS: RIGHT HIP PX TECHNIQUE: AP pelvis with lateral view(s) of the right hip(s). COMPARISON: X-ray hip 08/11/2019 FINDINGS: Bones: No fractures or dislocations. No suspicious bony lesions. Minimal bilateral degenerative h ip joint space narrowing. No erosions. Mild degenerative changes are present in the lower lumbar spin e. Soft tissues: The IMPRESSION: Arthritic changes within the hips and spine as above. Reviewed by: Rose Marie Camarena MD on 09/14/2022 2:27 PM PDT Approved by: Rose Marie Camarena MD on 09/14/2022 2:27 PM PDT Station ID: [id number]
--- NOTE | 2022-09-15 09:08 | XRAY Report ---
PROCEDURE: Knee 4 View LT INDICATIONS: LT KNEE PX TECHNIQUE: 4 views of the left knee(s) were acquired. COMPARISON: None. FINDINGS: Bones: No fractures or dislocations. No suspicious bony lesions. Postsurgical changes with ACL re pair. There is tricompartmental knee joint degeneration, moderate to severe at the patellofemoral com partment, and [id number] at the femorotibial compartments. Soft tissues: Small knee joint effusion. No suspicious soft tissue calcifications or masses. IMPRESSION: 1. Postsurgical changes with ACL repair. 2. Moderate to severe osteoarthritic changes. 3. Small knee joint effusion. Reviewed by: Ronald Fuentes MD on 09/15/2022 9:07 AM PDT Approved by: Ronald Fuentes MD on 09/15/2022 9:07 AM PDT Station ID: [id number]
== END 2022-09-14 09:21 | disposition home or self-care (01) ==
LOC: DI 09:20
PROVIDERS: ATTEND Physician Assistant
DX: M17.12 Unilateral primary osteoarthritis, left knee (principal); M25.462 Effusion, left knee; M16.11 Unilateral primary osteoarthritis, right hip; M47.816 Spondylosis without myelopathy or radiculopathy, lumbar region

== ENCOUNTER 2022-11-30 08:52 | Outpatient (CLI) | payer BC ==
--- NOTE | 2022-11-30 08:40 | SLEEP CARE CONSULTATION ---
Information from patient questionnaire entered by Melania Pepper. I have reviewed and concur with the information entered by Melania Pepper. This document represents the service I personally performed and the decisions made by , Chelsea Hughes ARNP. History of Present Illness Service Date and Time: 11/30/2022 0840 Previous diagnosis: Moderate, Obstructive Sleep Apnea-Hypopnea Syndrome AHI: 26.4 Reason for follow up: three month (F/U) Equipment type: CPAP (RESMED Airsense 11, s/u 06/2022) Equipment obtained from: Other ([facility], got initial supplies) Mask style: Nasal pillows Backup mask available: Yes (old mask) Last cushion change: last Saturday Prior sleep studies: No Type of Sleep Study: Home sleep study (COMPLETED 06-01-22) HPI additional information: CAROL ANN WRIGHT was diagnosed to have moderate, AHI 26.4, obstructive sleep apnea- hypopnea syndrome and returns via video telehealth visit today for CPAP therapy three month follow-up. Sleep Study - Results Type of Sleep Study: Home sleep study (COMPLETED 06-01-22) Prior sleep studies: No CPAP Compliance Data - Data Reviewed with Patient Average duration of nightly device use: 6 HRS 31 MINS Compliance rate %: 92 (08/29/22-11/26/22; 88/90 days used) Current pressure setting (cmH2O): 4-12 (median 8.8, avg 11.1, max 11.7) Average residual AHI: 2.7 Central apnea: 0.2 Obstructive apnea: 1.8 Hypopnea: 0.6 Average large leak: 0.1 L/min Subjective Patient concerns: denies: aerophagia, mask discomfort, air blowing in eyes, mask leak noise, condensation in mask/hose, nasal congestion, dry mouth, nose, throat, epistaxis Observed to snore while using device: No Current pressure setting perceived as: comfortable On therapy, patient: reports: sleeping better, awakening more refreshed, being more awake and alert during the day, more rested overall. denies: drowsiness while driving Initial [place] Sleepiness Scale score: 11 (05/07/22) Current [place] Sleepiness Scale score: 4 Allergies and Home Medications Known drug allergies: Yes (as listed) Drug allergies reviewed: Yes Home medication list reviewed: Yes (no changes) Allergy and home medication list: Allergies acetaminophen [From Percocet] Allergy (Verified 11/29/22 15:13) Itching oxycodone HCl * [From Percocet] Allergy (Verified 11/29/22 15:13) Itching Penicillins Allergy (Verified 11/29/22 15:13) Respiratory Review of Systems Review of systems same as previous: Yes (no changes) Physical Exam Vital signs obtained and entered by: MELANIA Posada MA Height: 5 ft 4 in Weight: 246 lb (per pt) Body Mass Index: 42.2 BMI Classification: Morbidly Obese Impression and Plan 1. Obstructive Sleep Apnea-Hypopnea Syndrome, moderate, with good treatment compliance and good apnea control. On CPAP therapy, the patient has better sleep quality and is more rested overall. Robin is doing very well and is enjoying having more energy during the day. She states she comes home after work and does not fall asleep sitting on the couch. Patient has significant improvement of their sleep apnea and is satisfied with current CPAP therapy. Patient denies problems with oral dryness, nasal congestion, epistaxis, skin irritation or aerophagia. She is comfortable enough with treatment that she is good with going for a year follow-up at this time. Patient's apnea severity and rationale for treatment to reduce apnea, improve sleep quality and reduce cardiovascular and cerebrovascular events was reviewed. I also reviewed the benefit of consistent device use of CPAP for hypertension and diabetes. 2. Obesity, unspecified. Currently patients BMI is 42.2. Obesity increases the risk of apnea, CPAP pressure requirements and overall health risks especially cardiovascular and diabetes. Thus patient is advised to continue to try to lose weight. * Continue auto CPAP pressure at 4-12 cmH2O * Notify me if snoring with mask or feeling that the pressure is too much or too little * Attempt to lose weight * Call this office if any problems using CPAP * Return for follow up in 12 months, or sooner if concerns arise Counseling Topics: Spare mask, Weight loss health impact Visit Type: Telehealth Video Video Type: Doximity Patient Location: Work Location of Provider: Office Patient agrees and consents to this telehealth visit type: Yes Patient agrees to have their insurance billed: Yes Time Spent with Patient (minutes): 10 Provider Statement: I spent 100% of the Telehealth Video Call with the patient with greater than 50% spent counseling the patient and coordination of care.
== END 2022-11-30 08:53 | disposition home or self-care (01) ==
LOC: SC 08:52
PROVIDERS: ATTEND Nurse Practitioner Family
DX: G47.33 Obstructive sleep apnea (adult) (pediatric) (principal); E66.01 Morbid (severe) obesity due to excess calories; Z68.42 Body mass index [BMI] 45.0-49.9, adult

== ENCOUNTER 2022-12-13 11:32 | Outpatient (CLI) | payer BC ==
[2022-12-13 17:59] LABS: ALBUMIN 4.4 g/dL (3.2-5.5); ALBUMIN/GLOBULIN RATIO 1.6 (1.0-2.2); BILIRUBIN,TOTAL 0.3 mg/dL (0.2-1.0); CREATININE 0.7 mg/dL (0.6-1.3); TOTAL PROTEIN 7.1 g/dL (6.4-8.9)
[2022-12-13 18:04] LABS: CREATININE,URINE 85.3 mg/dL
[2022-12-13 18:12] LABS: MICROALBUMIN,URINE < 0.7 mg/dL
[2022-12-13 21:20] LABS: ESTIMATED AVERAGE GLUCOSE 123 mg/dL (70-100); HEMOGLOBIN A1c% 5.9 % (4.27-6.07)
== END 2022-12-13 11:33 | disposition home or self-care (01) ==
LOC: LAB.N 11:32
PROVIDERS: ATTEND Physician Assistant
DX: E11.9 Type 2 diabetes mellitus without complications (principal)
CPT/HCPCS: 36415; 80053; 82043; 82570; 83036

== ENCOUNTER 2023-02-07 14:57 | Outpatient (CLI) | payer BC ==
--- NOTE | 2023-02-11 11:32 | Mammography Report ---
BILATERAL DIGITAL SCREENING MAMMOGRAM 3D/2D: 02/07/2023 CLINICAL: Routine screening. Comparison is made to exams dated: 01/08/2022 mammogram, 08/02/2020 mammogram - [facility] , 09/19/2018 mammogram, 07/21/2020 mammogram, and 08/02/2017 mammogram - [facility]. There are scattered areas of fibroglandular density in both breasts (category b / 25%-50% glandular t issue). There is a new 0.7 cm oval focal asymmetry in the left breast at 6 o'clock middle depth. There is ar chitectural distortion associated with the focal asymmetry. No other significant masses, calcifications, or other findings are seen in either breast. IMPRESSION: INCOMPLETE: NEEDS ADDITIONAL IMAGING EVALUATION The new 0.7 cm oval focal asymmetry in the left breast is indeterminate. Additional views with possi ble ultrasound are recommended. Based on the Tyrer Cuzick model (a risk assessment model) the patients lifetime risk is 9.5% and her 10 year risk is 3.1%. According to the ACR, ACS, and NCCN guidelines, an annual breast MRI exam sam g with mammogram is recommended if the patients lifetime risk is 20% or greater. This exam was interpreted at Station ID: [id number]. NOTE: For mammograms, a report in lay terms will be sent to the patient. Approximately 15% of breast malignancies will not be visualized mammographically. In the management of a palpable breast mass, a negative mammogram must not discourage biopsy of a clinically suspicious lesion. Electronically Signed By: Remington Tao M.D. aty/:02/08/2023 21:24:34 ACR BI-RADS Category 0: Incomplete 3340F PARENCHYMAL PATTERN: (A) - The breast(s) demonstrate(s) scattered fibroglandular densities. BI-RADS CATEGORY: (0) - 0 Mammo and US [id number] Immediate follow-up LATERALITY: (L)
== END 2023-02-07 14:58 | disposition home or self-care (01) ==
LOC: DI 14:57
DX: Z12.31 Encounter for screening mammogram for malignant neoplasm of breast (principal); R92.8 Other abnormal and inconclusive findings on diagnostic imaging of breast; R92.323 Mammographic fibroglandular density, bilateral breasts

== ENCOUNTER 2023-02-26 12:13 | Outpatient (CLI) | payer BC ==
--- NOTE | 2023-02-27 16:18 | Mammography Report ---
UNILATERAL LEFT DIGITAL DIAGNOSTIC MAMMOGRAM 3D/2D: 02/26/2023 CLINICAL: Patient returns today to evaluate a focal asymmetry in the left breast. Comparison is made to exams dated: 02/07/2023 mammogram - [facility], 01/08/2022 ma mmogram, 08/02/2020 mammogram - [facility], 07/21/2020 mammogram, 09/19/2018 mammogram, and mammogram - [facility]. There are scattered areas of fibroglandular density in the left breast (category b / 25%-50% glandula r tissue). There is a 0.8 cm mass with a spiculated margin in the left breast at 6 o'clock middle depth 9 cm fro m the nipple. No other significant masses or calcifications are seen in the breast. IMPRESSION: INCOMPLETE: NEEDS ADDITIONAL IMAGING EVALUATION The 0.8 cm mass in the left breast is indeterminate. An ultrasound is recommended. Based on the Tyrer Cuzick model (a risk assessment model) the patients lifetime risk is 9.5% and her 10 year risk is 3.1%. According to the ACR, ACS, and NCCN guidelines, an annual breast MRI exam sam g with mammogram is recommended if the patients lifetime risk is 20% or greater. This exam was interpreted at Station ID: [id number]. NOTE: For mammograms, a report in lay terms will be sent to the patient. Approximately 15% of breast malignancies will not be visualized mammographically. In the management of a palpable breast mass, a negative mammogram must not discourage biopsy of a clinically suspicious lesion. Electronically Signed By: Jose Guadalupe Vail M.D. acr/:02/26/2023 13:03:22 ACR BI-RADS Category 0: Incomplete 3340F PARENCHYMAL PATTERN: (A) - The breast(s) demonstrate(s) scattered fibroglandular densities. BI-RADS CATEGORY: (0) - 0 Ultrasound [id number] Immediate follow-up LATERALITY: (L)
--- NOTE | 2023-02-27 16:18 | Ultrasound Report ---
LIMITED ULTRASOUND OF LEFT BREAST: 02/26/2023 CLINICAL: Patient returns today to evaluate a focal asymmetry in the left breast. Comparison is made to exams dated: 02/26/2023 mammogram, 02/07/2023 mammogram - [facility], 01/08/2022 mammogram, 08/02/2020 ultrasound, 08/02/2020 mammogram - [facility], an d 07/21/2020 mammogram - [facility]. Ultrasound of the left breast 6-7 o'clock region was performed. Rodriguez scale images of the real-time examination were reviewed. No abnormality which corresponds with the mammographic abnormality is seen. No axillary adenopathy IMPRESSION: SUSPICIOUS OF MALIGNANCY There is no abnormality seen in the left breast to correspond with the mammography finding central to the nipple, however, since it is not seen with ultrasound, stereo biopsy is recommended. Findings a nd recommendations were discussed with the patient by Dr. Tao. This exam was interpreted at Station ID: [id number]. Electronically Signed By: Jose Guadalupe Vail M.D. acr/:02/26/2023 15:56:30 Ultrasound BI-RADS: 4b Moderate suspicion of malignancy BI-RADS CATEGORY: (4b) - Mod Susp Biopsy follow-up [id number] Immediate follow-up LATERALITY: (B)
== END 2023-02-26 12:14 | disposition home or self-care (01) ==
LOC: DI 12:13
PROVIDERS: ATTEND Physician Assistant
DX: N63.25 Unspecified lump in the left breast, overlapping quadrants (principal); R92.322 Mammographic fibroglandular density, left breast

== ENCOUNTER 2023-03-12 08:09 | Outpatient (CLI) | payer BC ==
[2023-03-12] MEDS ORDERED: LIDOCAINE-MPF 1% 5 ML VIAL ONE (08:21)
[2023-03-12] MEDS ORDERED: LIDOCAINE 1%-EPI 1:100000 50 ML VIAL ONE (08:21)
[2023-03-12] MEDS ORDERED: LIDOCAINE-MPF 1% 5 ML VIAL TD ONE (09:41)
[2023-03-12] MEDS ORDERED: LIDOCAINE 1%-EPI 1:100000 50 ML VIAL TD SCH (10:00)
[2023-03-12] MEDS ORDERED: LIDOCAINE 1%-EPI 1:100000 50 ML VIAL TD ONE (10:00)
--- NOTE | 2023-03-14 09:48 | Mammography Report ---
DIGITAL TOMOGRAPHIC MAMMOGRAPHY GUIDED STEREOTACTIC GUIDED BIOPSY LEFT BREAST USING VACUUM DEVICE WIT H MARKING DEVICE INSERTED AND POST DIGITAL MAMMOGRAPHIC IMAGING- POST-PROCEDURE IMAGING FOR MARKER PL ACEMENT: 03/12/2023 CLINICAL: Left stereotactic biopsy for breast mass. Correlation is made to exams dated: 02/26/2023 mammogram, 02/07/2023 mammogram - [facility], 01/08/2022 mammogram, 08/02/2020 mammogram - [facility], and 02/26/2023 ultrasou nd - [facility]. A stereotactic guided biopsy was performed for the 0.8 cm irregular shaped mass located in the left b reast at 6 o'clock middle depth 9 cm from the nipple. This was described on the previous mammography report. The skin was prepped in the usual manner. Local anesthetic was administered to the access site. A skin jonna was made in the breast. The abnormality was approached from the lateral aspect us ing an upright digital tomographic mammography unit. A 9 gauge biopsy needle was placed adjacent to the abnormality under computer guidance and confirmatory stereotactic mammography images were obtaine d to document needle placement. Once the needle was documented to be in the correct location, eight specimens were obtained using a vacuum assisted device. A clip was inserted into the biopsy cavity. A sterile dressing was applied to the access site. Post procedure digital mammographic imaging demo nstrates the location device at the targeted area. The specimens were sent to the laboratory for pat hological analysis. IMPRESSION: STEREOTACTIC GUIDED BIOPSY MALIGNANT Stereotactic guided biopsy of the 0.8 cm mass in the left breast at 6 o'clock middle depth 9 cm from the nipple was successful with no apparent post procedure complications. Pathology indicates maligna nt tissue, concordant (invasive lobular carcinoma, with microcalcifications). Oncology and surgical c onsultation recommended. This exam was interpreted at Station ID: [id number]. mo Benson M.D., M.D./:03/14/2023 09:40:42 BI-RADS CATEGORY: () - Unspecified - other recall n/a LATERALITY: (B)
== END 2023-03-12 08:10 | disposition home or self-care (01) ==
LOC: DI 08:09
PROVIDERS: ATTEND Physician Assistant
DX: C50.812 Malignant neoplasm of overlapping sites of left female breast (principal); Z17.0 Estrogen receptor positive status [ER+]
CPT/HCPCS: 19081; 88305; 88341; 88342; 88360; J3490

== ENCOUNTER 2023-03-28 06:56 | Outpatient (CLI) | payer BC ==
--- NOTE | 2023-03-28 11:17 | Ultrasound Report ---
PROCEDURE: Head or Neck Soft Tissue INDICATIONS: THYROID NODULES TECHNIQUE: Real-time scanning was performed of the thyroid gland, with image documentation. COMPARISON: Thyroid ultrasound on March 17, 2021 and April 13, 2022. FNA biopsy on April 21. FINDINGS: Right: Thyroid lobe measures 5.1 x 2.4 x 2.4 cm, and is homogeneous in echotexture. Left: Thyroid lobe measures 4.7 x 1.9 x 1.6 cm, and is homogenous in echotexture. Isthmus: 1 cm thick. Nodule number: One Location: Right superior Size: 0.8 x 0.9 x 0.6 cm, previously 0.9 x 0.6 x 0.6 cm. Composition: Solid (2 points). Echogenicity: Hypoechoic (2 points). Shape: wider than tall (0 points). Margins: Smooth (0 points). Echogenic foci: None (0 points). Total points: 4 ACR TI-RADS category: TI-RADS 4: Moderately suspicious. Nodule number: Two Location: Right inferior Size: 2.9 x 2 x 2.2 cm, previously 2.9 x 1.8 x 2.2 cm. Composition: Solid (2 points). Echogenicity: Isoechoic (1 point). Shape: wider than tall (0 points). Margins: Smooth (0 points). Echogenic foci: None (0 points). Total points: 3 ACR TI-RADS category: TI-RADS 3: Mildly suspicious. Nodule number: Three Location: Isthmus Size: 1.6 x 0.9 x 1.7 cm, previously 1.5 x 0.8 x 1.9 cm. Composition: Spongiform (0 points). Echogenicity: Hypoechoic (2 points). Shape: wider than tall (0 points). Margins: Smooth (0 points). Echogenic foci: None (0 points). Total points: 2 ACR TI-RADS category: TI-RADS 2: Not suspicious. Nodule number: Four Location: Left mid/medial Size: 0.7 x 0.9 x 0.5 cm, previously 1.2 x 1.2 x 1.2 cm. Composition: Solid (2 points). Echogenicity: Hypoechoic (2 points). Shape: wider than tall (0 points). Margins: Lobulated / Irregular (2 points). Echogenic foci: Macrocalcification (1 point). Total points: 7 ACR TI-RADS category: TI-RADS 5: Highly suspicious. Nodule number: 5 Location: Left inferior Size: 1.6 x 2.2 x 1.2 cm, previously 2.3 x 1.2 x 1.8 cm. Composition: Solid (2 points). Echogenicity: Hypoechoic (2 points). Shape: wider than tall (0 points). Margins: Smooth (0 points). Echogenic foci: Macrocalcification (1 point). Total points: 5 ACR TI-RADS category: TI-RADS 4: Moderately suspicious. IMPRESSION: 1.Compared to prior ultrasound, nodules 4 and 5 have decreased in size. 2.Nodules 2, 4 and 5 meet criteria for FNA recommendation. Correlate with prior FNA results. ACR TI-RADS definitions and recommendations: TI-RADS 1 (benign): 0 points. FNA not needed. TI-RADS 2 (not suspicious): 2 points. FNA not needed. TI-RADS 3 (mildly suspicious): 3 points. "FNA if 2.5 cm or larger, follow up if 1.5 cm or larger (at 1, 3, and 5 years). TI-RADS 4 (moderately suspicious): 4-6 points. "FNA if 1.5 cm or larger, follow up if 1 cm or larger (at 1, 2, 3, and 5 years). TI-RADS 5 (highly suspicious): 7 points or more. "FNA if 1 cm or larger, follow up if 0.5 cm or larger (every year for 5 years). Reviewed by: Racheal Everett MD on 03/28/2023 11:16 AM PST Approved by: Racheal Everett MD on 03/28/2023 11:16 AM PST Station ID: [id number]
== END 2023-03-28 06:57 | disposition home or self-care (01) ==
LOC: DI 06:56
PROVIDERS: ATTEND Internal Medicine Endocrinology, Diabetes & Metabolism
DX: E04.2 Nontoxic multinodular goiter (principal)

== ENCOUNTER 2023-12-23 07:16 | Outpatient (CLI) | payer BC ==
--- NOTE | 2023-12-26 10:02 | DEXA Report ---
PROCEDURE: Dexa Spine and/or Hip INDICATIONS: POST MENOPAUSAL TECHNIQUE: Dual energy x-ray absorptiometry (DEXA) was performed in the regions detailed below. COMPARISON: None. FINDINGS: Lumbar Spine: Bone Mineral Density 1.615 g/cm/cm,T score 3.6. Normal Left Femoral Neck: Bone Mineral Density 0.867 g/cm/cm, T score -1.2. Osteopenia Left Total Hip: Bone Mineral Density 0.996 g/cm/cm,T score -0.1. Normal FRAX 10-year Fracture Risk Assesment Tool 10 year risk of major osteoporotic fracture: 10.0% 10 year risk of hip fracture: 0.7% (T score greater or equal to -1.0: NORMAL) (T score from -1.1 to -2.4: OSTEOPENIA) (T score less than or equal to -2.5 to: OSTEOPOROSIS) IMPRESSION: Osteopenia Patients with diagnosis of osteoporosis or osteopenia should have regular bone mineral density assess ment. For those eligible for Medicare, routine testing is allowed once every 2 years. Testing frequ ency can be increased for patients who have rapidly progressing disease or for those who are receivin g medical therapy to restore bone mass. Reviewed by: Santo Keith MD on 12/26/2023 9:00 AM FORTUNATO Approved by: Santo Keith MD on 12/26/2023 9:00 AM FORTUNATO Station ID: [id number]
== END 2023-12-23 07:17 | disposition home or self-care (01) ==
LOC: DI 07:16
PROVIDERS: ATTEND Physician Assistant
DX: M85.88 Other specified disorders of bone density and structure, other site (principal); Z78.0 Asymptomatic menopausal state

== ENCOUNTER 2023-12-23 07:16 | Outpatient (CLI) | payer BC ==
--- NOTE | 2023-12-23 20:43 | CT Report ---
PROCEDURE: Lung Cancer Screen INDICATIONS: SCREENING FOR LUNG CA TECHNIQUE: A CT scan of the chest was performed. Intravenous contrast media was not administered. Images were re corded and evaluated at appropriate window settings. Reformats: axial MIP of the chest, coronal and s agittal. For radiation dose reduction, the following was used: automated exposure control, adjustment of mA and/or kV according to patient size. COMPARISON: None. FINDINGS: Image quality: Excellent. Lungs and pleura: No pleural effusions. No pneumothorax. No suspicious pulmonary nodules which requi re follow up. Couple of punctate calcified nodules within the anterior right lower lobe (series 4, im age 61) likely calcified granulomas. Mediastinum: Heart size is normal. No pericardial effusion. No large vessel abnormality. No mediastin al adenopathy by size criteria. Right-sided chest port catheter in place with tip terminating at the cavoatrial junction. Chest wall and lower neck: 2.4 cm hypodense nodule within the right thyroid lobe. No axillary or supr aclavicular adenopathy by size. Bones: No aggressive osseous abnormality. Upper Abdomen: Unremarkable. IMPRESSION: Lung RAD: 1 Recommendation: Continue annual screening in 12 months Non-Lung Significant Findings: 2.4 cm right thyroid nodule corresponding to abnormalities seen on pr ior thyroid sonogram of 03/28/2023. Correlate with prior FNA and recommendations as per prior sonogra m. Reviewed by: Natalio Alexandre MD on 12/23/2023 12:23 PM PDT Approved by: Natalio Alexandre MD on 12/23/2023 12:23 PM PDT Station ID: [id number]
== END 2023-12-23 07:17 | disposition home or self-care (01) ==
LOC: DI 07:16
PROVIDERS: ATTEND Physician Assistant
DX: Z12.2 Encounter for screening for malignant neoplasm of respiratory organs (principal); E04.1 Nontoxic single thyroid nodule; M85.88 Other specified disorders of bone density and structure, other site; Z78.0 Asymptomatic menopausal state